=== PATIENT | female | born 1945 | race Caucasian/White ===

== ENCOUNTER 2023-11-21 17:01 | Emergency (ER) | payer MEDICARE, BC ==
[2023-11-21] MEDS: oxyCODONE 5 MG Tab PO ONE (18:45)
== END 2023-11-21 20:29 | disposition home or self-care (01) ==
LOC: JP.ED 17:01
DX: S76.311A Strain of muscle, fascia and tendon of the posterior muscle group at thigh level, right thigh, initial encounter (principal); Z88.5 Allergy status to narcotic agent; Z88.8 Allergy status to other drugs, medicaments and biological substances; Z79.899 Other long term (current) drug therapy; X50.1XXA Overexertion from prolonged static or awkward postures, initial encounter
CPT/HCPCS: 73562; 99283; A9270